=== PATIENT | female | born 1985 | race Caucasian/White ===

== ENCOUNTER → 2020-05-10 09:35 | Outpatient (BNVA) | payer OTHER, SELFPAY | PROVIDERS: Family Provider Electrodiagnostic Medicine; PCP Electrodiagnostic Medicine; Visit Provider Nurse Practitioner Women's Health | DX: Z01.419 Encounter for gynecological examination (general) (routine) without abnormal findings (principal); L65.9 Nonscarring hair loss, unspecified | CPT/HCPCS: 84439; 84443; 88175 ==

== ENCOUNTER 2021-03-14 15:32 | Outpatient (CLI) | payer OTHER, SELFPAY ==
--- NOTE | 2021-03-14 15:38 | US_ITS ---
WS: [id number] EARLY OBSTETRICAL ULTRASOUND (<14 WEEKS). HISTORY: DATING COMPARISON: None available. Single intrauterine gestational sac is identified. Cardiac activity at 138 BPM. [place]-rump length yaw sures 0.8 cm which corresponds to a gestation of 6w6d. Normal-appearing yolk sac and amnion demonstra julee. No subchorionic hemorrhage. No free fluid. Corpus luteum cyst LEFT ovary. Corpus luteum measures 1.6 x 1.7 cm. US/US OB <= 14 weeks fetus [id number] IMPRESSION: 1. Single intrauterine gestation of 6 weeks 6 days with an EDC of 11/01/2021. 2. Normal cardiac activity.
== END 2021-03-14 15:33 | disposition home or self-care (01) ==
PROVIDERS: PCP Electrodiagnostic Medicine; Visit Provider Family Medicine
DX: Z34.91 Encounter for supervision of normal pregnancy, unspecified, first trimester (principal); Z3A.01 Less than 8 weeks gestation of pregnancy
CPT/HCPCS: 76801

== ENCOUNTER 2021-06-06 15:33 | Outpatient (CLI) | payer OTHER, SELFPAY ==
--- NOTE | 2021-06-06 | US_ITS ---
WS: [id number] OBSTETRICAL ULTRASOUND COMPLETE HISTORY: ANATOMY COMPARISON: 03/14/2021 Single intrauterine gestation in breech presentation. Cervix is Closed and normal length. Cervical length is 4.2 cm. Normal amount of amniotic fluid surrounds the fetus. Placenta: Anterior, no previa or abruption. Placenta grade 1 Heart: 153 BPM. 4 chamber heart evident. Outflow tracts do appear intact. Anatomy: Intracranial structures and spine are normal. kidneys, stomach and urinary bladd er are unremarkable. Abdominal wall, three-vessel cord and cord insertion site are normal. 4 extremities are present. profile: Unremarkable. Gender: Female. measurements: BPD = 4.5 cm = 19w4d HC = 17.1 cm = 19w5d AC = 14.3 cm = 19w4d FL = 3.1 cm = 19w4d EFW: 302 g. Biometry is internally concordant. AGA by ultrasound: 19w4d COBY by ultrasound: 10/27/2021 US/US OB >= 14 weeks fetus [id number] IMPRESSION: 1. Single intrauterine gestation of 19w4d with an COBY of 10/27/2021. Appropria te growth since the prior ultrasound. 2. Unremarkable screening survey of anatomy.
== END 2021-06-06 15:34 | disposition home or self-care (01) ==
LOC: RAD 15:33
PROVIDERS: PCP Electrodiagnostic Medicine; Visit Provider Family Medicine
DX: Z34.82 Encounter for supervision of other normal pregnancy, second trimester (principal); Z3A.19 19 weeks gestation of pregnancy
CPT/HCPCS: 76805

== ENCOUNTER → 2021-08-09 08:10 | Day surgery (SDC) | payer OTHER, SELFPAY ==
[2021-08-09 08:20] VITALS: BP 111/67; PULSE 79; RESP 18; TEMP 35.9; O2SAT 96
[2021-08-09 10:15] VITALS: BP 111/67; PULSE 79; RESP 18; TEMP 35.9; O2SAT 96
== END ==
PROVIDERS: PCP Electrodiagnostic Medicine; Visit Provider Family Medicine
DX: O36.0990 Maternal care for other rhesus isoimmunization, unspecified trimester, not applicable or unspecified (principal); Z3A.00 Weeks of gestation of pregnancy not specified; Z31.82 Encounter for Rh incompatibility status; Z67.91 Unspecified blood type, Rh negative
CPT/HCPCS: 36415; 36430; 86850; 86900; 90384; 96372

== ENCOUNTER 2021-10-13 07:41 | Outpatient (CLI) | payer OTHER, SELFPAY ==
[2021-10-13 07:41] VITALS: BMI 33.7
[2021-10-13 07:57] VITALS: BP 115/83; PULSE 97
[2021-10-13 08:04] LABS: Nitrazine Paper, PH Negative
[2021-10-13 08:12] VITALS: BP 109/80; PULSE 92
[2021-10-13 08:12] LABS: Actim Prom Negative
[2021-10-13 08:27] VITALS: BP 115/88; PULSE 91
[2021-10-13 09:06] VITALS: BP 115/88; PULSE 91; RESP 18; TEMP 36.3
== END 2021-10-13 08:40 | disposition home or self-care (01) ==
LOC: OPOB 07:42 → OBGYN 07:43
PROVIDERS: PCP Electrodiagnostic Medicine; Visit Provider Family Medicine
DX: O26.899 Other specified pregnancy related conditions, unspecified trimester (principal); Z3A.00 Weeks of gestation of pregnancy not specified; N89.8 Other specified noninflammatory disorders of vagina
CPT/HCPCS: 36415; 59025; 83986; 84112; 99211

== ENCOUNTER 2021-10-27 06:21 | Inpatient (IN) | payer OTHER, SELFPAY ==
[2021-10-27] VITALS (84 sets, daily range): BP systolic 78–139; BP diastolic 44–94; PULSE 46–126; RESP 16–17; TEMP 35–36; O2SAT 98–100; BMI 33.3
--- NOTE | 2021-10-27 06:46 | PM.HP ---
Providers/Chief Complaint Admitting Physician: Omkar Ulrich MD Primary Care Provider: Werenr Abdi DO Chief Complaint: INDUCTION OF LABOR History of Present Illness Becka Moreno is a 36 year old G3, P2 at 39.6 weeks gestation by LMP consistent with 6-week ultrasound. Her is complicated by Rh-, COVID-19 in August 2021, now breech presentation. The patient presents to labor and delivery for a scheduled induction of labor that is elective. The patient has been feeling well, and has no complaints of chest pains, shortness of breath, fever, nausea, vomiting, diarrhea, constipation, dysuria, leakage of fluid, vaginal bleeding. Upon presentation, the patient was found to be 4 cm dilated with 40% effacement. Unfortunately she was found to be in the breech presentation. We discussed options for section versus external cephalic version and the patient would like to proceed with an external cephalic version if possible. Medications/Allergies Home Medications Medication Instructions Recorded Confirmed Last Taken Type no.58-iron bisglycinate 1 cap PO DAILY 10/27/21 10/27/21 10/26/21 History 10 mg iron-folic acid 400 mcg capsule Allergies Allergy/AdvReac Type Severity Reaction Status Date / Time amoxicillin Allergy ADR-Vomitin Verified 10/27/21 06:38 g PFSH Acute PFSH: Medical History (Updated 10/27/21 @ 14:18 by Omkar Ulrich MD) No pertinent past medical history neghx:htn,dm,thyroid,dvt/pe Surgical History History of tonsillectomy History of umbilical hernia Family History Grandmother Ovarian cancer, Onset Age: 60 Maternal grandmother Denies family history of Colon cancer Diabetes Heart disease Hyperlipidemia Breast cancer Family history of thyroid problem Hypertension Uterine cancer Stroke Social History Additional social history: - Tobacco use: Denies Alcohol use: Social Drug use: Denies Female Reproductive History: : 3 Vitals/I&O/Wt Last Vital Signs Pulse 81 10/27/21 06:29 BP 118/81 10/27/21 06:29 Weight last 48 hrs Weight 194 lb Physical Exam Narrative: General: Alert and oriented x3 Eyes: Pupils equal round and reactive to light and accommodation Mouth: Mucous membranes moist, pharynx non-erythematous Cardiac: Regular rate and rhythm without murmurs Lungs: Clear to auscultation bilaterally without wheezes, crackles or rhonchi Abdomen: Soft, non-tender, fundus consistent with gestational age Extremities: Trace edema in the bilateral lower extremities Data : 10/27/21 06:40 A&P Assessment and plan (1) Intrauterine : Status: Acute (2) Rh negative status during : Status: Acute (3) Breech presentation: Status: Acute Plan heart tones are in the mid 140s with moderate variability and good accelerations with a category 1 tracing. The patient is na on her own every 4 to 6 minutes. Unfortunately the baby is in the breech position. We discussed the options of a section versus external cephalic version, and the patient would like to proceed with an attempt at external cephalic version. Further treatment will be pending results of the version. Attestations Medical Necessity Statement*: The patient will be here for greater than two midnights due to routine intrapartum and management of labor and delivery. Coding Level of Care Code Acute Infant And Toddler Teacher for Chg Fwd Diagnoses Intrauterine Z34.90 Rh negative status during O26.899; Z67.91 Breech presentation O32.1XX0
[2021-10-27 06:57] LABS: Basophils # 0.1 10^3/uL (0.0-0.1); Basophils % 0.7 %; Eosinophils # 0.2 10^3/uL (0.0-0.8); Eosinophils % 2.4 %; Hemoglobin 14.2 g/dL (11.5-15.3); Lymphocytes # 1.2 10^3/uL (0.8-4.8); Lymphocytes % 16.5 %; Mean Corpuscular HGB Conc 34.6 g/dL (30.0-36.0); Mean Corpuscular Hemoglobin 31.6 pg (28.0-34.0); Mean Corpuscular Volume 91.3 fl (81-99); Mean Platelet Volume 11.6 fL (7.4-10.4); Monocytes # 0.5 10^3/uL (0.2-0.9); Monocytes % 7.1 %; Neutrophils # 5.28 10^3/uL (1.8-7.7); Neutrophils % 72.9 %; Nucleated Red Blood Cells % 0 %; Platelet Count 204 10^3/cmm (130-400); Red Blood Count 4.49 10^6/uL (4.1-5.3); Red Cell Distribution Width 11.9 % (12.1-15.1); White Blood Count 7.2 10^3/uL (4.0-10.0)
--- NOTE | 2021-10-27 07:45 | PC.NURSE ---
Dr Ulrich at bedside to discuss breech presentation of fetus. Options for external cephalic version or section were discussed. Pt was also given the option to go home and see if baby would turn spontaneously. Risks and benefits of all options were discussed. Pt and s/o verbalized understanding and pt agreed to proceed with ECV.
--- NOTE | 2021-10-27 07:52 | PC.NURSE ---
Nurse discussed ECV with Dr Mensah from anesthesia. Notified that pt last ate at 0600. ECV scheduled for 1000. Dr Ulrich notified. Pt notified of time.
[2021-10-27] MEDS: terbutaline 1 mg/mL INJ 0.25 MG SUBCUT (10:26)
--- NOTE | 2021-10-27 10:43 | PM.ACPR ---
Procedure/Consent Procedure Narrative: Date of procedure: 10/27/2021 Start time of procedure: 10:32 AM Stop time of procedure: 10:35 AM Name of procedure: External cephalic version Preprocedure diagnosis: 1. Intrauterine at 39.6 weeks gestation 2. Breech presentation 3. Rh- status Procedure: After informed verbal consent was discussed with the patient regarding potential risks for complications that may include but not limited to rupture of membranes, placental abruption, need for emergent section, pain, side effects of medications, and possibility of unsuccessful version, the patient agreed to proceed with an attempted external cephalic version. Ultrasound was at bedside and visually there was a large amount of amniotic fluid. The was noted to be in the breech position. The head was noted to be on the maternal right with the infant spine on the maternal left. Anesthesia was immediately available. The patient was given 1 dose of terbutaline at 10:25 AM. Her contractions gradually stopped and her uterus was noted to be soft. At 10:32 AM, the breech position of the was pushed up to moving out of the pelvis and pressure was placed on the infant's head to attempt a forward somersault. After 2 minutes at 10:34 AM a pause was taken and the 's heart rate was 130 bpm. The version was restarted and further pressure was placed to continue the forward somersault at 10:34 AM. By 10:35 AM, the infant was in the vertex position. This was confirmed by bedside ultrasound. heart tones were in the 120 range. The procedure was stopped due to a successful external cephalic version. The patient tolerated the procedure well. heart tones are currently in the mid 130s with a category 1 tracing. We will watch heart tones for the next 30 minutes to 1 hour and as long as there are no signs of concerns, we will proceed with induction of labor using IV Pitocin. The patient and her are in agreement with the current plan of care.
--- NOTE | 2021-10-27 10:45 | PC.NURSE ---
ECV Procedure consent signed by patient, on chart. 0.25mg terbutaline given prior to procedure. Procedure started at 1032:00, stopped after 2 minutes to confirm position and heart tones. Heart rate 130 at 1034:00. Started again at 1034:42, Confirmed head down at 1036, heart rate 120s. Patient tolerated procedure well. Plans to continue with induction of labor. Anesthesia notified of successful ECV.
[2021-10-27] MEDS: dextrose 5%-lactated ringers 1,000 ML 125 ML IV (11:12)
--- NOTE | 2021-10-27 11:15 | PC.NURSE ---
Bedside ultrasound performed by RN, baby appears to be head down.
[2021-10-27] MEDS: oxytocin 30 UNIT/500 ML BAG 4 UNIT IV (11:16)
[2021-10-27] MEDS: lactated ringers 1,000 ML 999 ML IV ×2 (11:28→13:27)
--- NOTE | 2021-10-27 12:37 | P.ANESUD_ITS ---
Pre-Anesthetic Update Pre-Anesthetic Assessment: Date of Surgery/Procedure: 10/27/21 Proposed Procedure: Labor Epidural Any changes to Pre-Anesthetic Assessment?: No Labs Last 48hrs: Short CBC 10/27/21 Range/Units 06:40 WBC 7.2 (4.0-10.0) 10^3/ uL Hgb 14.2 (11.5-15.3) g/dL Hct 41.0 (37.0-47.0) % MCV 91.3 (81-99) fl Plt Count 204 (130-400) 10^3/c mm Neut % (Auto) 72.9 % Neut # (Auto) 5.28 (1.8-7.7) 10^3/u L Vitals: Pulse Rate 91 10/27/21 12:36 Pulse Rhythm 10/27/21 06:21 Pulse Strength 3+ Normal 10/27/21 06:21 Respiratory Rate 16 10/27/21 07:00 Respiratory Effort Non-Labored 10/27/21 06:21 Respiratory Depth Normal 10/27/21 06:21 Respiratory Patter n 10/27/21 06:21 Blood Pressure 117/78 10/27/21 12:36 Pulse Oximetry 100 10/27/21 12:26 Oxygen Delivery Me thod 10/27/21 06:21 Exam: Pre-Anes Outpt Exam: alert, oriented x 3, clear to auscultation refugio aterally and regular rate & rhythm Cardiac Studies: No Data to Display Anesthesia Procedures Epidural: Time Out Performed: Yes Consents Signed: Procedure Consent Consent: requested by attending/covering physician, from patient, risks and benefits reviewed and patient agrees to proceed Lumbar Level: L3-L4 Epidural position: sitting Epidural procedure: sterile prep of area, 1% lidocaine to numb the area, 18 g needle, neg for paresthesia, test dose given, 1.5% xylocaine 1:200k epi, placed PCEA, no systemic response, sterile dressing applied and 0.2% Ropiavacaine @ mls/hr (13) Additional Comments: QUENTIN at 5cm, cath at 10cm, 5mls of 2% lido PF bolused
--- NOTE | 2021-10-27 17:57 | P.PCNOB_ITS ---
Delivery Note: Date of delivery: October 27, 2021 Pre-delivery diagnoses: 1. Intrauterine at 39.6 weeks gestation 2. Breech presentation status post successful external cephalic version 3. Rh- status 4. COVID-19 in August 2021 Post-delivery diagnoses: 1. Intrauterine status post spontaneous vaginal delivery at 39.6 weeks gestation 2. Breech presentation status post successful external cephalic version 3. Rh- status 4. COVID-19 in August 2021 5. Delivery of healthy female weighing 6 pounds 15 ounces with Apgars of 9 and 9 Procedure: 1. External cephalic version 2. Spontaneous vaginal delivery Delivering Physician: Omkar Ulrich MD Estimated blood loss (mL): 50 Findings: Becka Moreno is a 36 year old G3 now P3 status post spontaneous vaginal delivery at 39.6 weeks gestation by LMP consistent with 6-week ultrasound.? Her was complicated by Rh-, COVID-19 in August 2021, breech presentation status post external cephalic version. Pre-Delivery Course: The patient presented to labor and delivery for a scheduled induction of labor that was elective in nature on the morning of 10/27/2021 Upon arrival she was 4 cm dilated but found to be in the breech position. For this reason an external cephalic version was attempted and was successful. IV Pitocin was started to induce labor and the patient had regular contractions. The patient received a laboring epidural. The epidural worked well, however shortly afterwards she had a hypotensive episode associated with heart tone decelerations. The patient was given IV fluids, oxygen and her Pitocin was stopped. The patient's blood pressure gradually improved without needing ephedrine. heart tones returned to a category 1 tracing and IV Pitocin was restarted eventually. The patient made gradual change and SROM took place at 1656 on 10/27/2021. Clear fluid was noted. Shortly afterwards the patient was noted to be complete at 1714 p.m. Delivery: The patient began pushing at 1720 on 10/27/2021. The patient pushed well and delivered in the OA position at 5:26 PM on 10/27/2021. The left shoulder was the anterior shoulder and it delivered with ease. Rest of the infant delivered with ease. The 's mouth and nose were bulb suctioned by myself. The infant was crying immediately upon delivery. The umbilical cord was wrapped around the 's right leg loosely. The was placed on the mother's chest where the nurses were waiting to care for her. After approximately 1 minute the umbilical cord was clamped by myself and cut by the 's father. Cord blood was obtained and the cord was drained of blood. Uterine massage was carried out and the placenta delivered without complication at 1731 on 10/27/2021. The placenta was noted to be intact with a peripheral umbilical cord insertion site. The cervix was inspected and no lacerations were noted. The vaginal was inspected and abrasions were noted in the periurethral region. A second-degree laceration was noted in the perineal region and the midline. This did not extend to the rectum. This was repaired using 3-0 Vicryl in a running fashion. The patient's epidural provided adequate anesthesia. No sutures were noted in the rectum upon exam. Currently both the mother and infant are doing well. History History History 3 Term 3 Miscarriages/Ectopic 0 0 Living Children 3 A&P Assessment and plan (1) Breech presentation: Status: Acute (2) Intrauterine : Status: Acute (3) Rh negative status during : Status: Acute (4) Spontaneous vaginal delivery: Status: Acute Coding Level of Care Code Acute Belt And Link Assembly Supervisor for Chg Fwd Diagnoses Breech presentation O32.1XX0 Intrauterine Z34.90 Rh negative status during O26.899; Z67.91 Spontaneous vaginal delivery O80
[2021-10-27] MEDS: benzocaine-menthol 78 gm Canister 1 SPRAY TOPICAL (20:04)
[2021-10-27] MEDS: ibuprofen 800 mg tablet PO (20:05)
[2021-10-27] MEDS: docusate sodium 100 mg Capsule PO (20:05)
[2021-10-28] VITALS (11 sets, daily range): BP systolic 121–151; BP diastolic 72–108; PULSE 61–93; RESP 18; TEMP 36–36.4
[2021-10-28 06:13] LABS: Hematocrit 37.6 % (37.0-47.0); Hemoglobin 12.8 g/dL (11.5-15.3); Mean Corpuscular Hemoglobin 31.4 pg (28.0-34.0); Mean Corpuscular Volume 92.2 fl (81-99); Mean Platelet Volume 11.4 fL (7.4-10.4); Platelet Count 158 10^3/cmm (130-400); Red Blood Count 4.08 10^6/uL (4.1-5.3); Red Cell Distribution Width 11.9 % (12.1-15.1); White Blood Count 8.9 10^3/uL (4.0-10.0)
[2021-10-28] MEDS: ibuprofen 800 mg tablet PO ×3 (08:18→21:16)
[2021-10-28] MEDS: prenatal vitamin Capsule 1 CAP PO (08:18)
[2021-10-28] MEDS: docusate sodium 100 mg Capsule PO ×2 (08:18→17:55)
--- NOTE | 2021-10-28 10:38 | PM.PN ---
Subjective Subjective: The patient is feeling well today. Her pain is well controlled. Her bleeding is decreasing well. She is ambulating, voiding, passing gas and tolerating food by mouth. She is breast-feeding. Vitals/I&O/Wt Last Vital Signs Temp 97.0 F L 10/28/21 07:00 Pulse 65 10/28/21 07:12 Resp 18 10/28/21 07:00 BP 131/78 10/28/21 07:12 Pulse Ox 100 10/27/21 12:26 10/27/21 10/28/21 10/28/21 22:59 06:59 14:59 Intake Total 2342.851 / 3393.750 Output Total 900 / 900 Balance 1442.851 / 2493.750 Weight last 48 hrs Weight 194 lb Physical Exam Narrative: General: Alert and oriented x3 Cardiac: Regular rate and rhythm without murmurs Lungs: Clear to auscultation bilaterally without wheezes, crackles or rhonchi Abdomen: Soft, mild tenderness over uterus. The uterus is firm and 2 cm below the umbilicus. Extremities: +1 pitting edema in the bilateral lower extremities Urinary Catheter Management: Garcia Latex: Cath Placed During This Visit: yes, but has since been removed by the nurse Reason for Continuing Indwelling Catheter: Other Urinary Catheter Date of Insertion: 10/27/21 Urinary Catheter Time of Insertion: 13:09 Date Urinary Catheter Removed: 10/27/21 Time Urinary Catheter Discontinued: 17:15 Data : 10/28/21 06:00 A&P Assessment and plan (1) Spontaneous vaginal delivery: Status: Acute Plan The patient is doing well. We will proceed with routine care. Plan for discharge home tomorrow if everything continues to go well. Attestations Medical Necessity Statement*: The patient will be here for greater than 2 midnights due to routine intrapartum and management of labor and delivery. Coding Level of Care Code Acute Emergency Room Clinician for Christofer Razo Diagnoses Spontaneous vaginal delivery O80
[2021-10-29 03:39] VITALS: BP 131/84; PULSE 69
--- NOTE | 2021-10-29 08:58 | PM.DCS ---
Discharge Providers Date of Admission: 10/27/21 06:21 Date of Discharge: October 29, 2021 Attending Provider at Admission: Omkar Ulrich MD Attending Provider at Discharge: Omkar Ulrich MD Primary Care Provider: Werner Abdi DO Diagnoses at Discharge Discharge Diagnosis (1) Spontaneous vaginal delivery: Status: Acute Other Information Additional DC diagnoses/information: 1.? Intrauterine status post spontaneous vaginal delivery at 39.6 weeks gestation 2.? Breech presentation status post successful external cephalic version 3.? Rh- status 4.? COVID-19 in August 2021 5.? Delivery of healthy infant female weighing 6 pounds 15 ounces with Apgars of 9 and 9? Reason for Visit Reason for Visit: INDUCTION OF LABOR Hospital Course Hospital Course The patient presented to labor and delivery for a scheduled induction of labor that was elective in nature on the morning of 10/27/2021? Upon arrival she was 4 cm dilated but found to be in the breech position.? For this reason an external cephalic version was attempted and was successful.? IV Pitocin was started to induce labor and the patient had regular contractions.? The patient received a laboring epidural.? The epidural worked well, however shortly afterwards she had a hypotensive episode associated with heart tone decelerations.? The patient was given IV fluids, oxygen and her Pitocin was stopped.? The patient's blood pressure gradually improved without needing ephedrine.? heart tones returned to a category 1 tracing and IV Pitocin was restarted eventually.? The patient made gradual change and SROM took place at 1656 on 10/27/2021.? Clear fluid was noted.? Shortly afterwards the patient was noted to be complete at 1714 p.m. The patient delivered without complication and her bleeding has been very little. Overall her pain is improving well. She did have a second-degree laceration with repair and is doing well. She is ambulating, voiding, passing gas and tolerating food by mouth. Routine discharge instructions were discussed and the patient is in agreement with discharge home at this time. Physical Exam Narrative: General: Alert and oriented x3 Cardiac: Regular rate and rhythm without murmurs Lungs: Clear to auscultation bilaterally without wheezes, crackles or rhonchi Abdomen: Soft, mild tenderness over uterus.? The uterus is firm and 2 cm below the umbilicus. Extremities: +1 pitting edema in the bilateral lower extremities Urinary Catheter Management: Garcia Latex: Cath Placed During This Visit: yes, but has since been removed by the nurse Reason for Continuing Indwelling Catheter: Other Urinary Catheter Date of Insertion: 10/27/21 Urinary Catheter Time of Insertion: 13:09 Date Urinary Catheter Removed: 10/27/21 Time Urinary Catheter Discontinued: 17:15 Discharge Data Studies Completed and Pending Laboratory Results WBC 8.9 10^3/uL (4.0-10.0) 10/28/21 06:00 RBC 4.08 10^6/uL (4.1-5.3) L 10/28/21 06:00 Hgb 12.8 g/dL (11.5-15.3) 10/28/21 06:00 Hct 37.6 % (37.0-47.0) 10/28/21 06:00 MCV 92.2 fl (81-99) 10/28/21 06:00 MCH 31.4 pg (28.0-34.0) 10/28/21 06:00 MCHC 34.0 g/dL (30.0-36.0) 10/28/21 06:00 RDW 11.9 % (12.1-15.1) L 10/28/21 06:00 Plt Count 158 10^3/cmm (130-400) 10/28/21 06:00 MPV 11.4 fL (7.4-10.4) H 10/28/21 06:00 Neut % (Auto) 72.9 % 10/27/21 06:40 Lymph % (Auto) 16.5 % 10/27/21 06:40 [place] % (Auto) 7.1 % 10/27/21 06:40 Eos % (Auto) 2.4 % 10/27/21 06:40 Baso % (Auto) 0.7 % 10/27/21 06:40 Neut # (Auto) 5.28 10^3/uL (1.8-7.7) 10/27/21 06:40 Lymph # (Auto) 1.2 10^3/uL (0.8-4.8) 10/27/21 06:40 [place] # (Auto) 0.5 10^3/uL (0.2-0.9) 10/27/21 06:40 Eos # (Auto) 0.2 10^3/uL (0.0-0.8) 10/27/21 06:40 Baso # (Auto) 0.1 10^3/uL (0.0-0.1) 10/27/21 06:40 Nucleated RBC % (auto) 0 % 10/27/21 06:40 Nucleated RBCs # 0.0 /100WBC 10/27/21 06:40 Vitals Last Vital Signs Temp 97.5 F L 10/28/21 17:56 Pulse 69 10/29/21 03:39 Resp 18 10/28/21 07:00 BP 131/84 10/29/21 03:39 Pulse Ox 100 10/27/21 12:26 Discharge Plan Discharge Patient Disposition: Home Condition: Good Prescriptions: New ibuprofen 800 mg Tablet 800 mg PO TID Qty: 30 0RF Continued 10-400 mg-mcg Capsule 1 cap PO DAILY 0RF Discharge Orders: Discharge Order (Routine); Ordered 10/29/21 Ordered By: Omkar Ulrich Referrals: Omkar Ulrich MD [Physician] - 6 Weeks Discharge Diet: Regular Discharge Activity: Resume usual activity Patient Instructions: Opioid Safety Activity Restrictions/Additional Instructions: Nothing per vagina for 6 weeks. Showering is preferred versus bathing. Discharge Attestations Time Spent in Discharge Care*: less than 30 min Quality Metrics Clinical Quality Measures [ No reported AMI, CVA or VTE this stay] Coding Level of Care Code Acute Chg FW DC note Diagnoses Spontaneous vaginal delivery O80
[2021-10-29 09:56] VITALS: TEMP 36
[2021-10-29 09:57] VITALS: BP 128/85; PULSE 84
[2021-10-29 10:15] VITALS: BP 128/85; PULSE 84
--- NOTE | 2021-10-30 15:27 | ANE.PACU2 ---
Inpatient post-anesthesia follow up: Airway intact: Yes Vital signs: Temperature 96.8 F Pulse Rate 84 Respiratory Rate 18 Blood Pressure 128/85 Pulse Oximetry 100 Oxygen Delivery Me thod Room Air Oxygen Flow Rate Fraction of Inspir ed Oxygen Hydration adequate: No Nausea and vomiting: Yes Pain level: 2 Mental status: Baseline
== END 2021-10-29 10:20 | disposition home or self-care (01) | DRG 806 ==
LOC: OPOB 06:21 → OBGYN 06:21
PROVIDERS: Admitting Provider Family Medicine; PCP Electrodiagnostic Medicine; Visit Provider Family Medicine
DX: O32.1XX0 Maternal care for breech presentation, not applicable or unspecified (principal); O36.0930 Maternal care for other rhesus isoimmunization, third trimester, not applicable or unspecified; Z37.0 Single live birth; O76 Abnormality in fetal heart rate and rhythm complicating labor and delivery; O70.1 Second degree perineal laceration during delivery; O69.2XX0 Labor and delivery complicated by other cord entanglement, with compression, not applicable or unspecified; Z3A.39 39 weeks gestation of pregnancy
CPT/HCPCS: 36415; 51702; 59025; 59409; 85025; 85027; 96372; 99211; J2795; J3105